=== PATIENT | female | born 1990 ===

== ENCOUNTER 2017-01-23 17:41 | Emergency (ER) | payer OTHER ==
[2017-01-23 17:42] VITALS: O2SAT 100
[2017-01-23 18:34] LABS: APPEARANCE,URINE Clear; BILIRUBIN,URINE NEGATIVE (NEGATIVE); COLOR,URINE Yellow; GLUCOSE, URINE (UA) NEGATIVE (NEGATIVE); KETONES,URINE NEGATIVE (NEGATIVE); LEUKOCYTE ESTERASE ,URINE NEGATIVE (NEGATIVE); NITRATE,URINE NEGATIVE (NEGATIVE); OCCULT BLOOD,URINE NEGATIVE (NEG-TRACE); PH,URINE 6.5; UROBILINOGEN,URINE 0.2 (0.2-1.0 EU)
[2017-01-23 18:46] LABS: RBC,URINE NEG (0-3AV/HPF); WBC,URINE 0-2 (0-5AV/HPF)
[2017-01-23 19:28] VITALS: BP 122/85; PULSE 100; RESP 18; TEMP 99.9
== END 2017-01-23 19:10 | disposition home or self-care (01) ==
LOC: ED 17:41
DX: R30.0 Dysuria (principal)
CPT/HCPCS: 81001; 99282